=== PATIENT | female | born 1990 | race Caucasian/White ===

== ENCOUNTER 2017-10-14 20:53 | Emergency (ER) | payer OTHER ==
[~2017-10-14] VITALS: Ht 144.8 cm; Wt 45.9 kg
[2017-10-14] MEDS ORDERED: DEPOP150I IM (21:18)
[2017-10-14 21:45] LABS: BASOPHILS # (AUTO) 0.08 K/uL (0.00-0.20); BASOPHILS % (AUTO) 0.8 % (0.0-2.0); EOSINOPHILS # (AUTO) 0.09 K/uL (0.00-0.70); EOSINOPHILS % (AUTO) 0.84 % (1.0-6.0); HEMATOCRIT 39.7 % (36-46); HEMOGLOBIN 13.5 g/dL (12.0-16.0); LYMPHOCYTES # (AUTO) 1.5 K/uL (1.0-4.8); LYMPHOCYTES % (AUTO) 14.5 % (22.0-44.0); MEAN CORPUSCULAR HEMOGLOBIN 32.6 pg (26.0-34.0); MEAN CORPUSCULAR VOLUME 96 fL (80-100); MONOCYTES # (AUTO) 0.6 K/uL (0.1-1.0); MONOCYTES % (AUTO) 5.5 % (2.0-9.0); NEUTROPHILS # (AUTO) 8.1 K/uL (1.8-7.7); NEUTROPHILS % (AUTO) 78.4 % (40.0-70.0); PLATELET COUNT (AUTO) 268 K/uL (150-450); RED BLOOD CELL COUNT(AUTO) 4.14 MIL/uL (4.00-5.20); RED CELL DISTRIBUTION WIDTH 13.5 % (11.5-14.5); WHITE BLOOD COUNT (AUTO) 10.3 K/uL (4.5-11.0)
[2017-10-14 21:50] LABS: APPEARANCE,URINE CLOUDY (CLEAR); GLUCOSE, URINE (UA) NEGATIVE (NEGATIVE); KETONES,URINE NEGATIVE (NEGATIVE); LEUKOCYTE ESTERASE ,URINE NEGATIVE (NEGATIVE); OCCULT BLOOD,URINE NEGATIVE (NEGATIVE); PH,URINE 6.5 (5.0-8.0); PROTEIN,URINE NEGATIVE (NEGATIVE)
[2017-10-14 21:56] LABS: ADD UA MICROSCOPIC NO
[2017-10-14 22:00] LABS: ANION GAP 8 mmol/L (8-16); CALCIUM, TOTAL 8.5 mg/dL (8.8-10.5); CARBON DIOXIDE 27 mmol/L (22-29); CHLORIDE 102 mmol/L (98-107); GLOMERULAR FILTR. RATE CALC > 60 mL/min (>60); POTASSIUM 3.3 mmol/L (3.5-5.1); SODIUM SERUM 137 mmol/L (136-145); UREA NITROGEN, BLOOD 11 mg/dL (7-18)
[2017-10-14 22:07] LABS: ALANINE AMINOTRANSFERASE 41 U/L (12-78); ALBUMIN 3.7 g/dL (3.4-5.0); ASPARTATE AMINOTRANSFERASE 19 U/L (15-37); BILIRUBIN,TOTAL 0.2 mg/dL (0.1-1.0); TOTAL PROTEIN, SERUM 6.7 g/dL (6.4-8.2)
[2017-10-14 23:05] VITALS: BP 121/74
== END 2017-10-15 00:21 | disposition home or self-care (01) ==
LOC: EDBD 20:55 → EMS 20:55
DX: O26.891 Other specified pregnancy related conditions, first trimester (principal); F17.210 Nicotine dependence, cigarettes, uncomplicated; F12.90 Cannabis use, unspecified, uncomplicated; Z3A.08 8 weeks gestation of pregnancy
CPT/HCPCS: 76801; 99285

== ENCOUNTER 2022-10-18 01:02 | Emergency (ER) | payer MEDICAID, OTHER ==
[~2022-10-18] VITALS: Ht 157.5 cm; Wt 64.0 kg
[~2022-10-18 01:02] MED LIST: MEDR150V13 IM
[2022-10-18 02:21] VITALS: BP 133/97
[2022-10-18] MEDS ORDERED: SULF-261 PO (02:26)
== END 2022-10-18 03:16 | disposition home or self-care (01) ==
LOC: EMS 01:02
DX: S60.425A Blister (nonthermal) of left ring finger, initial encounter (principal); F17.210 Nicotine dependence, cigarettes, uncomplicated; F12.90 Cannabis use, unspecified, uncomplicated; Z98.890 Other specified postprocedural states; X58.XXXA Exposure to other specified factors, initial encounter; Y93.89 Activity, other specified; Y92.89 Other specified places as the place of occurrence of the external cause; Y99.8 Other external cause status
CPT/HCPCS: 99283; Z7502

== ENCOUNTER 2023-03-16 23:28 | Emergency (ER) | payer MEDICAID ==
[~2023-03-16] VITALS: Ht 154.9 cm; Wt 50.0 kg
[~2023-03-16 23:28] MED LIST changes: +SULF-261 PO
[2023-03-17] MEDS ORDERED: CefTRIAXone SODIUM 1 GM/VIAL IM ONE
[2023-03-17] MEDS ORDERED: IBUPROFEN 600 MG TABLET PO ONE
[2023-03-17] MEDS ORDERED: LIDOCAINE/PF 1% 2 ML VIAL IM ONE
[2023-03-17 00:07] VITALS: BP 119/77
== END 2023-03-17 00:09 | disposition home or self-care (01) ==
LOC: EMS 23:28
DX: H60.12 Cellulitis of left external ear (principal); F17.210 Nicotine dependence, cigarettes, uncomplicated; F12.90 Cannabis use, unspecified, uncomplicated
CPT/HCPCS: 99283; 96372; J0696; J3490

== ENCOUNTER 2024-03-07 23:33 | Emergency (ER) | payer MEDICAID ==
[~2024-03-07] VITALS: Ht 154.9 cm; Wt 50.0 kg
[2024-03-07 23:35] VITALS: BP 132/84; PULSE 99; RESP 16; TEMP 97.9
[2024-03-08] MEDS ORDERED: BACTDSB PO (00:27)
[2024-03-08] MEDS: LIDOCAINE/PF 1% 2 ML VIAL IM ONE (00:51)
[2024-03-08] MEDS: CefTRIAXone SODIUM 1 GM/VIAL IM ONE (00:51)
[2024-03-08] MEDS: SULFAMETHOX/TRIMETH DS 800-160 MG/TABLET PO ONE (00:51)
[2024-03-08] MEDS: PERTUSS(ACELL),DIPH,TET/PF 0.5 ML SYRINGE [ADULT] IM. ONE (00:52)
== END 2024-03-08 01:20 | disposition home or self-care (01) ==
LOC: EMS 23:35
DX: S81.811A Laceration without foreign body, right lower leg, initial encounter (principal); F17.210 Nicotine dependence, cigarettes, uncomplicated; F12.90 Cannabis use, unspecified, uncomplicated; F15.90 Other stimulant use, unspecified, uncomplicated; Z98.890 Other specified postprocedural states; X58.XXXA Exposure to other specified factors, initial encounter; Y93.89 Activity, other specified; Y92.89 Other specified places as the place of occurrence of the external cause; Y99.8 Other external cause status
CPT/HCPCS: 99284; 90715; 90471; 96372; J0696; J3490